=== PATIENT | male | born 1970 | race African-American/Black ===

== ENCOUNTER 2024-12-20 10:24 | Emergency (ER) | payer BC, OTHER ==
[2024-12-20 10:32] VITALS: TEMP 98.2; BMI 24.2
[2024-12-20] MEDS: SODIUM CHLORIDE 0.9% 500 ML INFUS.BAG IV ONE ×2 (10:45→11:50)
[2024-12-20 11:17] LABS: ABSOLUTE IMMATURE GRANULOCYTES 0.02 x10^3/uL (0.0-0.031); BASOPHILS # 0.03 x10^3/uL (0.01-0.08); EOSINOPHIL % 2.4 % (0.8-7.0); EOSINOPHILS # 0.19 x10^3/uL (0.04-0.54); HEMATOCRIT 39.7 % (40.1-51.0); HEMOGLOBIN 13.1 g/dL (13.7-17.5); MEAN CELL VOLUME 87.8 fl (79.0-92.2); MEAN PLT VOLUME 11.1 fl (9.4-12.4); MONOCYTE # 0.55 x10^3/uL (0.30-0.82); MONOCYTE % 6.9 % (5.3-12.2); PLATELET COUNT 238 x10^3/uL (163-337); RDW 12.9 % (12.2-16.1)
[2024-12-20 11:37] LABS: ALBUMIN 4.3 g/dl (3.4-5.0); ALK PHOS 48 U/L (45-117); ANION GAP 10 mmol/L (4-13); BILIRUBIN,TOTAL 0.8 mg/dl (0.2-1); CALCIUM 9.8 mg/dl (8.5-10.1); CHLORIDE 102 mmol/L (98-107); CO2 27 mmol/L (21-32); CREATININE 1.6 mg/dl (0.6-1.3); GLUCOSE,RANDOM 115 mg/dl (74-106); POTASSIUM 4.3 mmol/L (3.5-5.1); SGOT/AST 16 U/L (15-37); SGPT/ALT 12 U/L (7-52); SODIUM 139 mmol/L (136-145); TOT PROT 6.5 g/dl (6.4-8.2)
[2024-12-20 13:14] LABS: CALCIUM 8.5 mg/dl (8.5-10.1); CREATININE 1.3 mg/dl (0.6-1.3); POTASSIUM 4.5 mmol/L (3.5-5.1)
[2024-12-20 14:37] VITALS: BP 108/75; PULSE 72; RESP 18
[2024-12-20 18:59] LABS: HCV DIAGNOSTIC IN-HOUSE W/RFLX NON-REACTIVE (NONREACTIVE); HIV INTERPRETATION NEGATIVE (NEGATIVE)
== END 2024-12-20 14:40 | disposition left against medical advice (07) ==
LOC: FER 10:24
DX: R55 Syncope and collapse (principal); N17.9 Acute kidney failure, unspecified; R10.32 Left lower quadrant pain
CPT/HCPCS: 36415; 80048; 80053; 81003; 82550; 82553; 84484; 85025; 86803; 87389; 93005; 99284-25